=== PATIENT | female | born 1995 | race African-American/Black ===

== ENCOUNTER 2024-01-24 15:39 | Emergency (ER) | payer BC ==
[~2024-01-24] VITALS: Ht 177.8 cm; Wt 72.0 kg
[2024-01-24 15:43] VITALS: BP 119/87; PULSE 80; RESP 15; TEMP 98.7; O2SAT 98
== END 2024-01-24 23:10 | disposition left against medical advice (07) ==
LOC: ER 15:39
DX: R10.31 Right lower quadrant pain (principal); Z53.21 Procedure and treatment not carried out due to patient leaving prior to being seen by health care provider

== ENCOUNTER 2024-04-09 08:11 | Emergency (ER) | payer MEDICAID, BC ==
[~2024-04-09] VITALS: Ht 160 cm; Wt 54.0 kg
[2024-04-09 08:15] VITALS: TEMP 98.4; O2SAT 99
[2024-04-09 08:20] VITALS: BP 131/80; PULSE 120; RESP 20; O2SAT 93
[2024-04-09] MEDS: FAMOTIDINE 20MG/2ML VIAL IV ONE (08:53)
[2024-04-09] MEDS: METHYLPREDNISOLONE SOD SUCC 125MG/2ML (ACT-O-VIAL) IV ONE (08:53)
[2024-04-09 09:03] LABS: CHLORIDE 107 mEq/L (98-107); POTASSIUM 3.6 mEq/L (3.5-5.1); SODIUM 139 mEq/L (136-145)
[2024-04-09 09:04] LABS: CALCIUM 8.9 mg/dL (8.7-10.4); CARBON DIOXIDE 21 mEq/L (21-32)
[2024-04-09 09:09] LABS: CREATININE 0.7 mg/dL (0.6-1.0); GLUCOSE 93 mg/dL (70-105); UREA NITROGEN BLOOD 22 mg/dL (9-23)
[2024-04-09 09:13] LABS: BASOPHILS % 0.3 % (0.0-2.0); EOSINOPHILS % 0.6 % (0.0-5.0); HEMATOCRIT. 35.5 % (36.0-48.0); HEMOGLOBIN. 11.8 g/dL (12.0-16.0); MEAN CORPUSCULAR HEMOGLOBIN 27.6 pg (28.0-32.0); MEAN CORPUSCULAR HGB CONC 33.2 g/dL (31.0-37.0); MEAN CORPUSCULAR VOLUME 83.1 fL (81.0-99.0); MEAN PLATELET VOLUME 7.6 fl (7.4-10.4); MONOCYTES % 10.6 % (2.0-8.0); NEUTROPHILS % 45.5 % (40.0-76.0); PLATELET 285 x1000/uL (130-400); RED BLOOD CELL COUNT 4.27 mill/uL (4.2-5.4); RED CELL DISTRIBUTION WIDTH 14.1 % (11.6-14.6); WHITE BLOOD COUNT 6.1 x1000/uL (4.5-11.0)
[2024-04-09 09:31] LABS: B-HCG QUANTITATIVE 88248 mIU/mL (<3)
[2024-04-09] MEDS ORDERED: P50 PO (09:51)
== END 2024-04-09 10:40 | disposition left against medical advice (07) ==
LOC: ER 08:11
DX: O99.711 Diseases of the skin and subcutaneous tissue complicating pregnancy, first trimester (principal); L50.9 Urticaria, unspecified; O20.0 Threatened abortion; Z79.52 Long term (current) use of systemic steroids; Z3A.01 Less than 8 weeks gestation of pregnancy
CPT/HCPCS: 99285; 96374; 76801; 96375; 80048; 84702; 85025; 86850; 86900; 86901; 36415; J2919; J3490; 99284

== ENCOUNTER 2024-05-01 00:05 | Emergency (ER) | payer BC, MEDICAID ==
[~2024-05-01] VITALS: Ht 165.1 cm; Wt 64.0 kg
[~2024-05-01 00:05] MED LIST: P50 PO
[2024-05-01 00:19] VITALS: TEMP 36.6; O2SAT 99
[2024-05-01] MEDS ORDERED: NA PHOS,M-B/NA PHOS,DI-BA ENEMA 118ML PR ONE (02:00)
[2024-05-01] MEDS: DOCUSATE SODIUM 100MG CAPSULE PO ONE (02:11)
[2024-05-01] MEDS: SENNOSIDES/DOCUSATE SOD 8.6/50MG TABLET PO PRN (02:12)
[2024-05-01] MEDS: DOCUSATE SODIUM 100MG CAPSULE PO NR (02:20)
[2024-05-01 04:01] LABS: BASOPHILS % 0.1 % (0.0-2.0); EOSINOPHILS % 0.9 % (0.0-5.0); HEMATOCRIT. 34.4 % (36.0-48.0); HEMOGLOBIN. 11.3 g/dL (12.0-16.0); LYMPHOCYTES % 19.1 % (20.0-50.0); MEAN CORPUSCULAR HEMOGLOBIN 27.4 pg (28.0-32.0); MEAN CORPUSCULAR HGB CONC 32.8 g/dL (31.0-37.0); MEAN CORPUSCULAR VOLUME 83.5 fL (81.0-99.0); MEAN PLATELET VOLUME 7.5 fl (7.4-10.4); MONOCYTES % 6.6 % (2.0-8.0); NEUTROPHILS % 73.3 % (40.0-76.0); PLATELET 289 x1000/uL (130-400); RED BLOOD CELL COUNT 4.11 mill/uL (4.2-5.4); RED CELL DISTRIBUTION WIDTH 14.5 % (11.6-14.6); WHITE BLOOD COUNT 8.3 x1000/uL (4.5-11.0)
[2024-05-01 04:05] LABS: HCG SCREEN POSITIVE
[2024-05-01 04:32] LABS: CHLORIDE 107 mEq/L (98-107); POTASSIUM 3.8 mEq/L (3.5-5.1); SODIUM 139 mEq/L (136-145)
[2024-05-01 04:33] LABS: CALCIUM 8.8 mg/dL (8.7-10.4); CARBON DIOXIDE 22 mEq/L (21-32)
[2024-05-01 04:38] LABS: CREATININE 0.5 mg/dL (0.6-1.0); GLUCOSE 109 mg/dL (70-105); UREA NITROGEN BLOOD 18 mg/dL (9-23)
[2024-05-01 05:01] LABS: B-HCG QUANTITATIVE 93062 mIU/mL (<3)
[2024-05-01] MEDS ORDERED: SENN-371 MT (05:01)
[2024-05-01] MEDS: ACETAMINOPHEN 325MG TABLET PO ONE (05:02)
[2024-05-01 05:12] VITALS: BP 115/67; PULSE 91; RESP 20; O2SAT 98
== END 2024-05-01 05:14 | disposition home or self-care (01) ==
LOC: ER 00:05
DX: O26.891 Other specified pregnancy related conditions, first trimester (principal); O99.611 Diseases of the digestive system complicating pregnancy, first trimester; K59.00 Constipation, unspecified; Z3A.11 11 weeks gestation of pregnancy
CPT/HCPCS: 36415; 80048; 84702; 84703; 85025; 99284